=== PATIENT | male | born 1960 | race Caucasian/White ===

== ENCOUNTER 2021-09-03 06:56 | Outpatient (RCR) | payer OTHER | END 2021-09-07 | LOC: PT 06:56 | PROVIDERS: ATTEND Physician Assistant | DX: S46.011A Strain of muscle(s) and tendon(s) of the rotator cuff of right shoulder, initial encounter (principal) ==

== ENCOUNTER 2021-09-15 14:00 | Outpatient (RCR) | payer OTHER ==
[2021-09-23] MEDS ORDERED: PANTOPRAZOLE SO40 MG PO (14:24)
[2021-09-23] MEDS ORDERED: HYDROCHLOROTHIA25 MG PO (14:24)
== END 2021-10-08 ==
LOC: PT 14:00
PROVIDERS: ATTEND Physician Assistant
DX: M75.121 Complete rotator cuff tear or rupture of right shoulder, not specified as traumatic (principal)
CPT/HCPCS: 97139

== ENCOUNTER → 2021-09-27 | Day surgery (SDC) | payer OTHER ==
[2021-09-24 08:53] LABS: ANION GAP 17.1 mmol/L (8-16); CALCIUM 8.8 mg/dL (8.4-10.2); CREATININE, SERUM 1.06 mg/dL (0.72-1.25); POTASSIUM 3.1 mmol/L (3.5-5.1)
[~2021-09-27] MED LIST: DEXAMETHASONE SOD PHOS INJ 4 MG/ML SDV ONE; EPHEDRINE SULFATE INJ 50 MG/ML VIAL ONE; EPINEPHRINE 1 MG/ML 30ML VIAL ONE; FENTANYL CITRATE/PF 100MCG/2 ML INJ ONE; GLYCOPYRROLATE INJ 0.2 MG/ML VIAL ONE; HYDROCHLOROTHIA25 MG PO; MIDAZOLAM HCL 2 MG/2 ML VIAL ONE; Morphine 10mg syringe 10 MG/ML INJ ONE; NEOSTIGMINE 1 MG/ML 10ML VIAL ONE; ONDANSETRON HCL INJ 2MG/ML 2ML 2 MG/ML VIAL ONE; PANTOPRAZOLE SO40 MG PO; POVIDONE IODINE 0.05% 0.05 % ML PO ONE; PROPOFOL IV EMULSION 10 MG/ML 20 ML VIAL ONE; ROCURONIUM BROMIDE 10 MG/ML 5ML VIAL IV ONE; ROPIVACAINE 0.5% 5 MG/ML 30 ML SDV ONE; SEVOFLURANE INHAL SOLN 250 ML PEN BTL ONE; SODIUM CHLORIDE 0.9% 50ML 100 ML ONE
[2021-09-27 10:35] VITALS: BP 181/84
== END | disposition home or self-care (01) ==
LOC: OR 08:04
PROVIDERS: ATTEND Specialist
DX: S43.421A Sprain of right rotator cuff capsule, initial encounter (principal); M94.211 Chondromalacia, right shoulder; G47.33 Obstructive sleep apnea (adult) (pediatric); I10 Essential (primary) hypertension; K21.9 Gastro-esophageal reflux disease without esophagitis; K44.9 Diaphragmatic hernia without obstruction or gangrene; X58.XXXA Exposure to other specified factors, initial encounter; Z01.810 Encounter for preprocedural cardiovascular examination; Z01.812 Encounter for preprocedural laboratory examination; Z20.822 Contact with and (suspected) exposure to COVID-19; Z79.899 Other long term (current) drug therapy; Z68.41 Body mass index [BMI] 40.0-44.9, adult; Z87.442 Personal history of urinary calculi
CPT/HCPCS: 29824; 29827; 36415; 80048; 93005; C1713; J0690; J1100; J2250; J2270; J2405; J2704; J2710; J2795; J3010; U0002

== ENCOUNTER → 2021-11-08 | Outpatient (RCR) | payer OTHER ==
[~2021-11-08] MED LIST changes: -DEXAMETHASONE SOD PHOS INJ 4 MG/ML SDV ONE; -EPHEDRINE SULFATE INJ 50 MG/ML VIAL ONE; -EPINEPHRINE 1 MG/ML 30ML VIAL ONE; -FENTANYL CITRATE/PF 100MCG/2 ML INJ ONE; -GLYCOPYRROLATE INJ 0.2 MG/ML VIAL ONE; -MIDAZOLAM HCL 2 MG/2 ML VIAL ONE; -Morphine 10mg syringe 10 MG/ML INJ ONE; -NEOSTIGMINE 1 MG/ML 10ML VIAL ONE; -ONDANSETRON HCL INJ 2MG/ML 2ML 2 MG/ML VIAL ONE; -POVIDONE IODINE 0.05% 0.05 % ML PO ONE; -PROPOFOL IV EMULSION 10 MG/ML 20 ML VIAL ONE; -ROCURONIUM BROMIDE 10 MG/ML 5ML VIAL IV ONE; -ROPIVACAINE 0.5% 5 MG/ML 30 ML SDV ONE; -SEVOFLURANE INHAL SOLN 250 ML PEN BTL ONE; -SODIUM CHLORIDE 0.9% 50ML 100 ML ONE
== END ==
LOC: PT 11-05 14:04
PROVIDERS: ATTEND Physician Assistant
DX: Z47.89 Encounter for other orthopedic aftercare (principal); S46.011D Strain of muscle(s) and tendon(s) of the rotator cuff of right shoulder, subsequent encounter

== ENCOUNTER → 2021-12-06 | Outpatient (RCR) | payer OTHER | LOC: PT 11-09 07:10 | PROVIDERS: ATTEND Physician Assistant | DX: Z47.89 Encounter for other orthopedic aftercare (principal); S46.011D Strain of muscle(s) and tendon(s) of the rotator cuff of right shoulder, subsequent encounter ==

== ENCOUNTER 2022-01-04 09:00 | Outpatient (RCR) | payer OTHER | END 2022-01-06 | LOC: PT 09:00 | PROVIDERS: ATTEND Physician Assistant | DX: Z47.89 Encounter for other orthopedic aftercare (principal); S46.011D Strain of muscle(s) and tendon(s) of the rotator cuff of right shoulder, subsequent encounter | CPT/HCPCS: 97139 ==

== ENCOUNTER 2022-02-04 07:59 | Outpatient (RCR) | payer OTHER | END 2022-02-05 | LOC: PT 07:59 | PROVIDERS: ATTEND Physician Assistant | DX: Z47.89 Encounter for other orthopedic aftercare (principal); S46.011D Strain of muscle(s) and tendon(s) of the rotator cuff of right shoulder, subsequent encounter ==

== ENCOUNTER 2022-03-04 15:00 | Outpatient (RCR) | payer OTHER | END 2022-03-08 | LOC: PT 15:00 | PROVIDERS: ATTEND Physician Assistant | DX: Z47.89 Encounter for other orthopedic aftercare (principal); S46.011D Strain of muscle(s) and tendon(s) of the rotator cuff of right shoulder, subsequent encounter | CPT/HCPCS: 97139 ==

== ENCOUNTER 2022-03-11 15:32 | Outpatient (RCR) | payer OTHER | END 2022-04-07 | LOC: PT 15:32 | PROVIDERS: ATTEND Physician Assistant | DX: Z47.89 Encounter for other orthopedic aftercare (principal); S46.011D Strain of muscle(s) and tendon(s) of the rotator cuff of right shoulder, subsequent encounter | CPT/HCPCS: 97139 ==